=== PATIENT | female | born 1945 | race Caucasian/White ===

== ENCOUNTER 2018-11-11 12:19 | Outpatient (CLI) | payer MEDICARE | END 2018-11-11 12:20 | disposition home or self-care (01) | LOC: ULT 12:19 | PROVIDERS: ATTEND Family Medicine | DX: R60.0 Localized edema (principal); R06.02 Shortness of breath; E11.9 Type 2 diabetes mellitus without complications; I08.3 Combined rheumatic disorders of mitral, aortic and tricuspid valves | CPT/HCPCS: 93306 ==

== ENCOUNTER 2018-12-22 07:48 | Outpatient (CLI) | payer MEDICARE ==
--- NOTE | 2018-12-22 11:57 | NM ---
MYOCARDIAL PERFUSION STUDY: HISTORY: Dyspnea. Dose: 33 mCi of technetium 99m Cardiolite for the stress portion of exam. The patient was stressed us ing 71.1 mg of adenosine given IV. FINDINGS: Images demonstrate normal myocardial perfusion exam. No evidence of areas of decreased perfusion seen . Ejection fraction measures 80%. IMPRESSION: Normal myocardial perfusion exam with no evidence of ischemia or scar seen. Transcribed Date/Time: 12/22/2018 12:11 PM
== END 2018-12-22 07:49 | disposition home or self-care (01) ==
LOC: NM 07:48
PROVIDERS: ATTEND Family Medicine
DX: R06.09 Other forms of dyspnea (principal)
CPT/HCPCS: 78452; 93017; A9500; J0153